=== PATIENT | female | born 1980 | race Caucasian/White ===

== ENCOUNTER 2017-07-21 13:41 | Emergency (ER) | payer MEDICAID ==
[2017-07-21 13:55] VITALS: BP 120/66
[2017-07-21] MEDS ORDERED: Sodium Chloride 0.9% 10 ML Syringe FLUSH PRN (14:25)
[2017-07-21] MEDS ORDERED: Ketorolac 30 MG/ML SDV IVPUSH ONE (14:29)
[2017-07-21] MEDS ORDERED: Ondansetron 4 MG/2 ML SDV IVPUSH ONE (14:29)
--- NOTE | 2017-07-21 14:43 | EDM.PDOC ---
ED HPI GENERAL MEDICAL PROBLEM - General Chief Complaint: Abdominal Pain Stated Complaint: HERNIA PAIN Time Seen by Provider: 07/21/17 14:12 Source of Information: Reports: Patient, Old Records History Limitations: Reports: No Limitations - History of Present Illness INITIAL COMMENTS - FREE TEXT/NARRATIVE: 37-year-old female presents for evaluation and treatment of abdominal pain. Reports that she's been experiencing pain on and off in this area for the last 2 months. States that she has a hernia that was repaired last year by Dr. Pedraza. For the last 2 months she is having worsening pain to this area. She saw Kalyani Ugarte approximately 2 weeks ago and had a CT done. She reports that her hernia was enlarging. She currently is complaining of nausea, weakness and complains of bloating. She states that she is not passing much gas. No vomiting or fevers. She states that she is constipated. She did have a small bowel movement earlier today. States that she contacted Dr. Pedraza's office today, however, he was also she was instructed to come to the ER. Location: Reports: Abdomen Abdominal Pain Score (Numeric/FACES): 2 - Related Data Allergies Allergy/AdvReac Type Severity Reaction Status Date / Time ragweed pollen Allergy Swelling Verified 07/21/17 13:48 Home Meds: Home Meds Albuterol [Ventolin HFA] 2 puff INH Q4H PRN 08/10/14 [History] Ibuprofen [Motrin] 400 mg PO Q6H PRN 08/10/14 [History] Cetirizine [ZyrTEC] 1 tab PO DAILY 05/27/16 [History] Sertraline [Zoloft] 150 mg PO DAILY 05/27/16 [History] buPROPion [buPROPion XL] 150 mg PO DAILY 07/21/17 [History] Past Medical History HEENT History: Reports: Allergic Rhinitis, Impaired Vision, Sinusitis Cardiovascular History: Reports: None Respiratory History: Reports: Asthma Gastrointestinal History: Reports: None, Chronic Diarrhea, Other (See Below) Other Gastrointestinal History: abdominal hernia, abdominal swelling, abdominal wall mass, abd pain 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 History: Reports: Other (See Below) Other OB/BYN History: menorrhagia Musculoskeletal History: Reports: None, Back Pain, Chronic Neurological History: Reports: None Psychiatric History: Reports: Anxiety, Depression Other Psychiatric History: hospitalized in 2002 for overdose Endocrine/Metabolic History: Reports: Obesity/BMI 30+ Hematologic History: Reports: Idiopathic Thrombocytopenia Other Hematologic History: ITP Immunologic History: Reports: None Oncologic (Cancer) History: Reports: None Dermatologic History: Reports: None - Past Surgical History Head Surgeries/Procedures: Reports: None HEENT Surgical History: Reports: Naso-Sinus Surgery GI Surgical History: Reports: Hernia, Abdominal, Hernia, Inguinal, Hernia Repair /Other Female Surgical History: Reports: Tubal Ligation Endocrine Surgical History: Reports: None Musculoskeletal Surgical History: Reports: Arthroscopic Knee Dermatological Surgical History: Reports: None Social & Family History - Family History HEENT: Reports: Cataract Cardiac: Reports: CAD, High Cholesterol, Hypertension, VA, Stent Respiratory: Reports: Sleep Apnea Other Respiratory Family Hisory: father GI: Reports: Other (See Below) Other GI Family History: hernias Musculoskeletal: Reports: Arthritis, Osteoarthritis Neurological: Reports: Seizure Psychiatric: Reports: ADHD, Anxiety, Depression Endocrine/Metabolic: Reports: Diabetes, type II Dermatologic: Reports: Eczema Oncologic: Reports: Breast - Tobacco Use Smoking Status *Q: Former Smoker Years of Tobacco use: 12 Packs/Tins Daily: 1 Used Tobacco, but Quit: No Month Tobacco Last Used: 2014 Second Hand Smoke Exposure: No - Caffeine Use Caffeine Use: Reports: Coffee, Soda - Alcohol Use Days Per Week of Alcohol Use: 0 Number of Drinks Per Day: 0 Total Drinks Per Week: 0 - Recreational Drug Use Recreational Drug Use: No Drug Use in Last 12 Months: No ED ROS GENERAL - Review of Systems Review Of Systems: See Below Constitutional: Reports: Weakness. Denies: Fever GI/Abdominal: Reports: Abdominal Pain, Nausea. Denies: Constipation (reports ) , Flatus, Vomiting ED EXAM, GI/ABD - Physical Exam Exam: See Below Exam Limited By: No Limitations General Appearance: Alert, WD/WN, No Apparent Distress, Obese Ears: Normal External Exam Nose: Normal Inspection Throat/Mouth: Normal Inspection, Normal Lips, Normal Voice, No Airway Compromise Respiratory/Chest: No Respiratory Distress, Lungs Clear, Normal Breath Sounds Cardiovascular: Normal Peripheral Pulses, Regular Rate, Rhythm, No Rub GI/Abdominal Exam: Normal Bowel Sounds, Non-Tender, No Distention. No: Distended, Hernia (defect appreciated to the umbilical area; no hernia present while laying supine on the bed) Neurological: Alert, Oriented, Normal Cognition Psychiatric: Flat Affect Skin Exam: Warm, Dry. No: Erythema Course - Vital Signs Last Recorded V/S: Last Vital Signs Temp 37.0 C 07/21/17 13:51 Pulse 72 07/21/17 13:51 Resp BP 120/66 07/21/17 13:51 Pulse Ox 100 07/21/17 13:51 - Orders/Labs/Meds Labs: Laboratory Tests 07/21/17 07/21/17 07/21/17 Range/Units 15:00 15:00 15:00 WBC 8.88 (3.98-10.04) K/mm3 RBC 4.97 (3.98-5.22) M/mm3 Hgb 12.4 (11.2-15.7) gm/L Hct 38.7 (34.1-44.9) % MCV 77.9 L (79.4-94.8) fl MCH 24.9 L (25.6-32.2) pg MCHC 32.0 L (32.2-35.5) g/dl RDW Std Deviation 48.5 H (36.4-46.3) fL Plt Count 321 (182-369) K/mm3 MPV 10.1 (9.4-12.3) fl Neutrophils % (Manual) 60 (40-60) % Band Neutrophils % 0 (0-10) % Lymphocytes % (Manual) 37 (20-40) % Atypical Lymphs % 0 % Monocytes % (Manual) 0 L (2-10) % Eosinophils % (Manual) 3 (0.7-5.8) % Basophils % (Manual) 0 L (0.1-1.2) Platelet Estimate Adequate Plt Morphology Comment Normal Anisocytosis 2+ moderate RBC Morph Comment Not Reportable Sodium 141 (136-145) mEq/L Potassium 4.2 (3.5-5.1) mEq/L Chloride 105 (98-107) mEq/L Carbon Dioxide 29 (21-32) mEq/L Anion Gap 11.2 (5-15) BUN 8 (7-18) mg/dL Creatinine 0.8 (0.55-1.02) mg/dL Est Cr Clr Drug Dosing 91.88 mL/min Estimated GFR (MDRD) > 60 (>60) mL/min BUN/Creatinine Ratio 10.0 L (14-18) Glucose 94 (74-106) mg/dL Calcium 9.3 (8.5-10.1) mg/dL Total Bilirubin 0.2 (0.2-1.0) mg/dL AST 20 (15-37) U/L ALT 31 (14-59) U/L Alkaline Phosphatase 88 (46-116) U/L Total Protein 8.1 (6.4-8.2) g/dl Albumin 3.6 (3.4-5.0) g/dl Globulin 4.5 gm/dL Albumin/Globulin Ratio 0.8 L (1-2) HCG, Qual Negative (NEGATIVE) Meds: Medications Discontinued Medications Generic Name Dose Route Start Last Admin Trade Name Freq PRN Reason Stop Dose Admin Ketorolac Tromethamine 30 mg 07/21/17 14:29 07/21/17 15:06 Toradol IVPUSH 07/21/17 14:30 30 mg ONETIME ONE Administration Ondansetron HCl 4 mg 07/21/17 14:29 07/21/17 15:02 Zofran IVPUSH 07/21/17 14:30 4 mg ONETIME ONE Administration Sodium Chloride 10 ml 07/21/17 14:25 07/21/17 14:50 Saline Flush FLUSH 10 ml ASDIRECTED PRN Administration Keep Vein Open - Radiology Interpretation Free Text/Narrative:: Abdomen: Supine and upright views of the abdomen were obtained. Comparison: Prior abdominal and pelvic CT exam of 07/10/17 is available as well as abdominal x-ray of 04/14/16. Bowel gas pattern appears normal. No abnormal calcifications or soft tissue abnormality is seen. No free air is identified. Bony structures appear within normal limits for the patient's age. Impression: 1. No abnormality is identified on two-view abdominal x-ray. - Re-Assessments/Exams Free Text/Narrative Re-Assessment/Exam: 07/21/17 16:01 I reviewed the labs and imaging with the patient. She has follow-up with Dr. Pedraza on . I encouraged her to keep this appointment. Offer her medication for pain and nausea, she declined. discharge instructions as documented. Departure - Departure Time of Disposition: 16:02 Disposition: Home, Self-Care 01 Condition: Fair Clinical Impression: Abdominal hernia - Discharge Information Instructions: Hernia, Adult, [id number] Referrals: Kalyani Ugarte NP [Primary Care Provider] - Tono Pedraza MD [Physician] - Forms: ED Department Discharge Additional Instructions: OTC tylenol or motrin as needed for pain. Follow-up with Dr. Pedraza as planned. Please return to the ER if your symptoms change or worsen.
--- NOTE | 2017-07-21 15:05 | CR ---
Abdomen: Supine and upright views of the abdomen were obtained. Comparison: Prior abdominal and pelvic CT exam of 07/10/17 is available as well as abdominal x-ray of 04/14/16. Bowel gas pattern appears normal. No abnormal calcifications or soft tissue abnormality is seen. No free air is identified. Bony structures appear within normal limits for the patient's age. Impression: 1. No abnormality is identified on two-view abdominal x-ray. Diagnostic code #1
== END 2017-07-21 16:18 | disposition home or self-care (01) ==
LOC: JD.ED 13:41
DX: K46.9 Unspecified abdominal hernia without obstruction or gangrene (principal); Z79.899 Other long term (current) drug therapy; Z87.891 Personal history of nicotine dependence
CPT/HCPCS: 36415; 74019; 80053; 84703; 85025; 96374; 96375; 99284; J1885; J2405; J7050

== ENCOUNTER 2017-08-07 10:02 | Day surgery (SDC) | payer MEDICAID ==
[~2017-08-07 10:02] MED LIST: Lidocaine 1% 4 ML ONE; Lidocaine 1%/Sod Bicarbonate in NS 8.4% 1 ML Syringe IDERM PRN; Midazolam 1 MG/ML 2 ML SDV ONE; Propofol 200 MG/20 ML SDV ONE; Sodium Chloride 0.9% 10 ML Syringe FLUSH PRN; fentaNYL 250 MCG/5 ML SDV ONE
[2017-08-07] MEDS: Lactated Ringers 1,000 ML IV SCH ×2 (10:30→13:22)
--- NOTE | 2017-08-07 10:35 | PCM.PREANE ---
Preanesthetic Assessment - Procedure Proposed Procedure: Open Hernia Repair with mesh - Anesthesia/Transfusion/Family Hx Anesthesia History: Prior Anesthesia Without Reaction Family History of Anesthesia Reaction: No Transfusion History: No Prior Transfusion(s) Intubation History: History of Difficulty Intubation - Review of Systems General: No Symptoms Pulmonary: Other (asthma, anxiety trigger ) Gastrointestinal: No Symptoms Neurological: No Symptoms Other: Reports: None - Physical Assessment NPO Status Date: 08/06/17 NPO Status Time: 20:00 Pulse: 65 O2 Sat by Pulse Oximetry: 95 Respiratory Rate: 16 Blood Pressure: 133/79 Temperature: 97.6 C Height: 1.68 m ASA Class: 2 Mental Status: Alert & Oriented x3 Airway Class: Mallampati = 1 Dentition: Reports: Normal Dentition Thyro-Mental Finger Breadths: 3 Mouth Opening Finger Breadths: 5 ROM/Head Extension: Full Lungs: Clear to Auscultation, Normal Respiratory Effort Cardiovascular: Regular Rate, Regular Rhythm - Allergies Allergies/Adverse Reactions: Allergies Allergy/AdvReac Type Severity Reaction Status Date / Time ragweed pollen Allergy Swelling Verified 08/06/17 10:46 - Blood Blood Available: No - Acknowledgements Anesthesia Type Planned: General Anesthesia Pt an Appropriate Candidate for the Planned Anesthesia: Yes Alternatives and Risks of Anesthesia Discussed w Pt/Guardian: Yes Pt/Guardian Understands and Agrees with Anesthesia Plan: Yes PreAnesthesia Questionnaire HEENT History: Reports: Allergic Rhinitis, Impaired Vision, Sinusitis Cardiovascular History: Reports: None Respiratory History: Reports: Asthma Gastrointestinal History: Reports: None, Chronic Diarrhea, Other (See Below) Other Gastrointestinal History: abdominal hernia, abdominal swelling, abdominal wall mass, abd pain Genitourinary History: Reports: None [employer]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) Other OB/BYN History: menorrhagia, bacterial vaginitis Musculoskeletal History: Reports: None, Back Pain, Chronic Neurological History: Reports: None Psychiatric History: Reports: Anxiety, Depression Other Psychiatric History: hospitalized in 2002 for overdose, insomnia Endocrine/Metabolic History: Reports: Obesity/BMI 30+ Hematologic History: Reports: Idiopathic Thrombocytopenia Other Hematologic History: ITP Immunologic History: Reports: None Oncologic (Cancer) History: Reports: None Dermatologic History: Reports: None - Past Surgical History Head Surgeries/Procedures: Reports: None HEENT Surgical History: Reports: Naso-Sinus Surgery Respiratory Surgical History: Reports: None GI Surgical History: Reports: Hernia, Abdominal, Hernia, Inguinal, Hernia Repair /Other Female Surgical History: Reports: Tubal Ligation Male Surgical History: Reports: None Endocrine Surgical History: Reports: None Neurological Surgical History: Reports: None Musculoskeletal Surgical History: Reports: Arthroscopic Knee Oncologic Surgical History: Reports: None Dermatological Surgical History: Reports: None - SUBSTANCE USE Smoking Status *Q: Former Smoker Tobacco Use Within Last Twelve Months: No Second Hand Smoke Exposure: No Days Per Week of Alcohol Use: 0 Number of Drinks Per Day: 0 Total Drinks Per Week: 0 Recreational Drug Use History: No - HOME MEDS Home Medications: Home Meds Albuterol [Ventolin HFA] 2 puff INH Q4H PRN 08/10/14 [History] Ibuprofen [Motrin] 400 mg PO Q6H PRN 08/10/14 [History] Cetirizine [ZyrTEC] 1 tab PO DAILY 05/27/16 [History] Sertraline [Zoloft] 150 mg PO DAILY 05/27/16 [History] ALPRAZolam [Alprazolam] 0.5 mg PO DAILY 08/06/17 [History] Acetaminophen [Tylenol] 650 mg PO Q4H PRN 08/06/17 [History] Ascorbic Acid [Vitamin C] 1,000 mg PO DAILY 08/06/17 [History] buPROPion HCl [Wellbutrin Xl] 300 mg PO DAILY 08/06/17 [History] - CURRENT (IN HOUSE) MEDS Current Meds: Current Medications Lactated Ringer's (Ringers, Lactated) 1,000 mls @ 125 mls/hr IV ASDIRECTED WIL Lidocaine/Sodium Bicarbonate (Buffered Lidocaine 1% In Ns 8.4%) 0.25 ml IDERM ONETIME PRN PRN Reason: Prior to IV Start Sodium Chloride (Saline Flush) 10 ml FLUSH ASDIRECTED PRN PRN Reason: Keep Vein Open Discontinued Medications Bupivacaine HCl/Epinephrine Bitart (Marcaine 0.5%/Epinephrine 1:200,000) Confirm Administered Dose 50 ml .ROUTE .STK-MED ONE Stop: 08/07/17 10:00 Fentanyl (Sublimaze) Confirm Administered Dose 250 mcg .ROUTE .STK-MED ONE Stop: 08/07/17 09:33 Lidocaine HCl (Xylocaine-Mpf 1%) Confirm Administered Dose 4 mls @ as directed .ROUTE .STK-MED ONE Stop: 08/07/17 09:33 Lidocaine/Epinephrine (Xylocaine 1% With Epinephrine 1:100,000) Confirm Administered Dose 20 ml .ROUTE .STK-MED ONE Stop: 08/07/17 10:00 Midazolam HCl (Versed 1 Mg/Ml) Confirm Administered Dose 2 mg .ROUTE .STK-MED ONE Stop: 08/07/17 09:33 Propofol (Diprivan 20 Ml) Confirm Administered Dose 400 mg .ROUTE .STK-MED ONE Stop: 08/07/17 09:30
[2017-08-07] MEDS: Lidocaine 1% with EPINEPHrine 1:100,000 20 ML MDV ONE ×2 (11:06→11:51)
[2017-08-07] MEDS: Bupivacaine 0.5%/EPINEPHrine 1:200,000 50 ML MDV ONE ×2 (11:06→11:51)
[2017-08-07] MEDS ORDERED: Ondansetron 4 MG/2 ML SDV ONE (11:18)
[2017-08-07] MEDS ORDERED: Ketorolac 30 MG/ML SDV ONE (11:18)
[2017-08-07] MEDS ORDERED: ceFAZolin 1 GM Vial ONE (11:18)
[2017-08-07] MEDS ORDERED: Dexamethasone 4 MG/ML 5 ML MDV ONE (11:18)
--- NOTE | 2017-08-07 12:07 | PCM.OPNOTE ---
- General Post-Op/Procedure Note Date of Surgery/Procedure: 08/07/17 Operative Procedure(s): Open primary repair of a recurrent supraumbilical hernia Findings: Adhesions from the previous procedure. There was a 2 cm defect right lateral to the mesh of the previous hernia repair containing a mature sac with omental contents. Pre Op Diagnosis: Recurrent umbilical hernia Post-Op Diagnosis: Same Anesthesia Technique: General ET Tube, Local Primary Surgeon: Tono Pedraza Pathology: None EBL in mLs: 5 Complications: None Condition: Good Free Text/Narrative:: After adequate general endotracheal tube anesthesia was obtained the patient's abdomen was prepped and draped sterilely for the procedure. I entered the skin and subcutaneous space through a previously placed infraumbilical incision with a 15 blade. I used Metzenbaums scissors to dissect down to the fascia. There was a 3 cm chronically inflamed piece of fat related to the previous infraumbilical procedure. This was excised. There was no defect in the fascia in this area. I then detached the umbilicus from the midline and in the area of the supraumbilical repair there was a hernia encased in scar protruding through a 2 cm defect just right lateral to the previous mesh repair containing omentum. I dissected the herniated sac away from the surrounding fascial age sharply with scissors. I excised the sac from the omentum which was reduced after I excised a small tongue of it. I then closed the defect with six interrupted 0 Ethibond sutures taking 1 cm bites. The field was irrigated out with saline. I reattached the umbilical skin to the midline with 3-0 Vicryl. I closed the space with interrupted 3-0 Vicryl and then closed Babita's with a running 3-0 Vicryl. The skin was closed with robyn. Gauze and tape were used for the dressing. There were no complications.
[2017-08-07] MEDS ORDERED: fentaNYL 100 MCG/2 ML SDV IVPUSH PRN (12:21)
[2017-08-07] MEDS ORDERED: HYDROmorphone 0.5 MG/0.5 ML Syringe IVPUSH PRN (12:21)
[2017-08-07] MEDS ORDERED: Ondansetron 4 MG/2 ML SDV IVPUSH PRN (12:21)
[2017-08-07] MEDS ORDERED: diphenhydrAMINE 50 MG/ML SDV IVPUSH PRN (12:21)
--- NOTE | 2017-08-07 12:21 | PCM.POSTAN ---
POST ANESTHESIA ASSESSMENT - MENTAL STATUS Mental Status: Alert - VITAL SIGNS Pulse Rate: 79 SaO2: 100 Resp Rate: 12 Blood Pressure: 143/97 Temperature: 99.2 C - RESPIRATORY Respiratory Status: Respiratory Rate WNL, Airway Patent, O2 Saturation Stable - CARDIOVASCULAR CV Status: Pulse Rate WNL, Blood Pressure Stable - GASTROINTESTINAL GI Status: No Symptoms - PAIN Pain Score: 6 (treated ) - POST OP HYDRATION Hydration Status: Adequate & Stable
[2017-08-07] MEDS ORDERED: LORazepam 2 MG/ML MDV IVPUSH ONE (13:30)
--- NOTE | 2017-08-07 13:30 | PCM48HPAN ---
Post Anesthesia Note - EVALUATION WITHIN 48HRS OF ANESTHETIC Vital Signs in Normal Range: Yes Patient Participated in Evaluation: Yes Respiratory Function Stable: Yes Airway Patent: Yes Cardiovascular Function Stable: Yes Hydration Status Stable: Yes Pain Control Satisfactory: Yes Nausea and Vomiting Control Satisfactory: Yes Mental Status Recovered: Yes Pulse Rate: 79 Resp Rate: 20 Temperature: 99.2 C Blood Pressure: 143/97
[2017-08-07 14:38] VITALS: BP 112/50
== END 2017-08-07 14:20 | disposition home or self-care (01) ==
LOC: JD.SDS 10:02
PROVIDERS: ATTEND Surgery
DX: K43.2 Incisional hernia without obstruction or gangrene (principal); J45.909 Unspecified asthma, uncomplicated; F41.9 Anxiety disorder, unspecified; F32.9 Major depressive disorder, single episode, unspecified; E66.9 Obesity, unspecified; D69.3 Immune thrombocytopenic purpura; Z68.30 Body mass index [BMI] 30.0-30.9, adult; Z91.09 Other allergy status, other than to drugs and biological substances; Z98.51 Tubal ligation status; Z87.891 Personal history of nicotine dependence; Z79.899 Other long term (current) drug therapy
CPT/HCPCS: 49565; J0690; J1100; J1885; J2060; J2250; J2405; J3010; J7120; J2704

== ENCOUNTER 2017-11-30 06:57 | Day surgery (SDC) | payer MEDICAID ==
[~2017-11-30 06:57] MED LIST changes: +Lactated Ringers 1,000 ML IV SCH; -Lidocaine 1% 4 ML ONE; -Midazolam 1 MG/ML 2 ML SDV ONE; -Propofol 200 MG/20 ML SDV ONE; -fentaNYL 250 MCG/5 ML SDV ONE
[2017-11-30] MEDS ORDERED: Bupivacaine 0.5%/EPINEPHrine 1:200,000 50 ML MDV ONE (07:15)
[2017-11-30] MEDS ORDERED: Lidocaine 1% with EPINEPHrine 1:100,000 20 ML MDV ONE (07:15)
--- NOTE | 2017-11-30 07:24 | PCM.PREANE ---
Preanesthetic Assessment - Anesthesia/Transfusion/Family Hx Anesthesia History: Prior Anesthesia Without Reaction Family History of Anesthesia Reaction: No Transfusion History: No Prior Transfusion(s) Intubation History: History of Difficulty Intubation - Review of Systems General: No Symptoms Pulmonary: No Symptoms Cardiovascular: Dyspnea on Exertion Gastrointestinal: No Symptoms Neurological: No Symptoms Other: Reports: Depression - Physical Assessment NPO Status Date: 11/29/17 NPO Status Time: 23:30 Pulse: 61 O2 Sat by Pulse Oximetry: 96 Respiratory Rate: 16 Blood Pressure: 127/73 Temperature: 36.5 C Vital Signs: Last Vital Signs Temp 36.5 C 11/30/17 07:05 Pulse 61 11/30/17 07:05 Resp 16 11/30/17 07:05 BP 127/73 11/30/17 07:05 Pulse Ox 96 11/30/17 07:05 Height: 1.68 m Weight: 115.666 kg ASA Class: 2 Mental Status: Alert & Oriented x3 Airway Class: Mallampati = 2 Dentition: Reports: Normal Dentition Thyro-Mental Finger Breadths: 3 Mouth Opening Finger Breadths: 3 ROM/Head Extension: Full Lungs: Clear to Auscultation, Normal Respiratory Effort Cardiovascular: Regular Rate, Regular Rhythm - Allergies Allergies/Adverse Reactions: Allergies Allergy/AdvReac Type Severity Reaction Status Date / Time ragweed pollen Allergy Swelling Verified 11/27/17 11:45 - Blood Blood Available: No - Anesthesia Plan Pre-Op Medication Ordered: None - Acknowledgements Anesthesia Type Planned: General Anesthesia Pt an Appropriate Candidate for the Planned Anesthesia: Yes Alternatives and Risks of Anesthesia Discussed w Pt/Guardian: Yes Pt/Guardian Understands and Agrees with Anesthesia Plan: Yes PreAnesthesia Questionnaire HEENT History: Reports: Impaired Vision, Sinusitis Other HEENT History: Allergic Rhinitis Cardiovascular History: Reports: Other (See Below) Other Cardiovascular History: Hypokalemia Respiratory History: Reports: Asthma Gastrointestinal History: Reports: Chronic Diarrhea, Other (See Below) Other Gastrointestinal History: Chronic Abdominal Pain, Umbilical Hernia (x4), Abdominal Swelling, Abdominal Wall Mass, Hx. 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 OB/BYN History: menorrhagia, bacterial vaginitis Musculoskeletal History: Reports: Back Pain, Chronic Other Musculoskeletal History: Knee pain Neurological History: Reports: None Psychiatric History: Reports: Anxiety, Depression, Suicide Attempt Other Psychiatric History: hospitalized in 2002 for overdose, insomnia Endocrine/Metabolic History: Reports: Obesity/BMI 30+ Hematologic History: Reports: Idiopathic Thrombocytopenia Other Hematologic History: ITP in 2003 Immunologic History: Reports: None Oncologic (Cancer) History: Reports: None Dermatologic History: Reports: None - Past Surgical History HEENT Surgical History: Reports: Naso-Sinus Surgery GI Surgical History: Reports: Colon, Hernia Repair/Other Female Surgical History: Reports: Tubal Ligation Musculoskeletal Surgical History: Reports: Other (See Below) Other Musculoskeletal Surgeries/Procedures:: Right Knee Surgery - SUBSTANCE USE Smoking Status *Q: Former Smoker Tobacco Use Within Last Twelve Months: No Second Hand Smoke Exposure: No Days Per Week of Alcohol Use: 0 Number of Drinks Per Day: 0 Total Drinks Per Week: 0 Recreational Drug Use History: No - HOME MEDS Home Medications: Home Meds Ibuprofen [Motrin] 400 mg PO Q6H PRN 08/10/14 [History] Cetirizine [ZyrTEC] 1 tab PO DAILY 05/27/16 [History] Sertraline [Zoloft] 150 mg PO DAILY 05/27/16 [History] ALPRAZolam [Alprazolam] 0.5 mg PO DAILY PRN 08/06/17 [History] Acetaminophen [Tylenol] 650 mg PO Q4H PRN 08/06/17 [History] buPROPion HCl [Wellbutrin Xl] 300 mg PO DAILY 08/06/17 [History] Albuterol Sulfate [Proair Hfa] 2 puff INH Q4H PRN 11/27/17 [History] - CURRENT (IN HOUSE) MEDS Current Meds: Current Medications Lactated Ringer's (Ringers, Lactated) 1,000 mls @ 125 mls/hr IV ASDIRECTED WIL Stop: 11/30/17 23:00 Lidocaine/Sodium Bicarbonate (Buffered Lidocaine 1% In Ns 8.4%) 0.25 ml IDERM ONETIME PRN PRN Reason: Prior to IV Start Stop: 11/30/17 18:00 Scopolamine (Transderm-Scop) 1.5 mg TOP ONETIME ONE Stop: 11/30/17 07:20 Sodium Chloride (Saline Flush) 10 ml FLUSH ASDIRECTED PRN PRN Reason: Keep Vein Open Stop: 11/30/17 18:00 Discontinued Medications Bupivacaine HCl/Epinephrine Bitart (Marcaine 0.5%/Epinephrine 1:200,000) Confirm Administered Dose 50 ml .ROUTE .STK-MED ONE Stop: 11/30/17 07:16 Lidocaine/Epinephrine (Xylocaine 1% With Epinephrine 1:100,000) Confirm Administered Dose 20 ml .ROUTE .STK-MED ONE Stop: 11/30/17 07:16
[2017-11-30] MEDS ORDERED: Scopolamine 1.5 MG Transdermal Patch TOP ONE (07:25)
[2017-11-30] MEDS ORDERED: Ondansetron 4 MG/2 ML SDV ONE (07:30)
[2017-11-30] MEDS ORDERED: Rocuronium 50 MG/5 ML Vial ONE (07:30)
[2017-11-30] MEDS ORDERED: fentaNYL 250 MCG/5 ML SDV ONE (07:30)
[2017-11-30] MEDS ORDERED: Midazolam 1 MG/ML 2 ML SDV ONE (07:30)
[2017-11-30] MEDS ORDERED: Propofol 200 MG/20 ML SDV ONE (07:30)
[2017-11-30] MEDS ORDERED: Lidocaine 1% 4 ML ONE (07:31)
[2017-11-30] MEDS ORDERED: ceFAZolin 1 GM Vial ONE ×2 (07:36→09:56)
[2017-11-30] MEDS ORDERED: Lactated Ringers 1,000 ML ONE (08:12)
[2017-11-30] MEDS ORDERED: Dexamethasone 4 MG/ML 5 ML MDV ONE (08:13)
[2017-11-30] MEDS ORDERED: HYDROmorphone 0.5 MG/0.5 ML Syringe ONE (08:21)
[2017-11-30] MEDS ORDERED: Ketorolac 30 MG/ML SDV IVPUSH PRN (09:05)
--- NOTE | 2017-11-30 09:06 | PCM.POSTAN ---
POST ANESTHESIA ASSESSMENT - MENTAL STATUS Mental Status: Alert, Oriented - VITAL SIGNS Pulse Rate: 66 SaO2: 100 Resp Rate: 13 Blood Pressure: 130/75 Temperature: 36.7 C - RESPIRATORY Respiratory Status: Respiratory Rate WNL, Airway Patent, O2 Saturation Stable, Supplemental Oxygen - CARDIOVASCULAR CV Status: Pulse Rate WNL, Blood Pressure Stable - GASTROINTESTINAL GI Status: No Symptoms - PAIN Pain Score: 0 - POST OP HYDRATION Hydration Status: Adequate & Stable - OBSERVATIONS Free Text/Narrative:: no anesthesia complications noted
[2017-11-30] MEDS ORDERED: LORazepam 2 MG/ML SDV ONE (09:27)
[2017-11-30] MEDS ORDERED: LORazepam 2 MG/ML SDV IVPUSH ONE (09:29)
[2017-11-30] MEDS ORDERED: Acetaminophen/oxyCODONE 325-5 MG Tab PO ONE (09:40)
[2017-11-30] MEDS ORDERED: Citric Acid/Sodium Citrate Solution 30 ML Cup PO ONE (09:50)
[2017-11-30 10:29] VITALS: BP 113/66
--- NOTE | 2017-11-30 10:35 | PCM.OPNOTE ---
- General Post-Op/Procedure Note Date of Surgery/Procedure: 11/30/17 Operative Procedure(s): Open recurrent umbilical repair with mesh Findings: Herniated omentum above the old mesh repair Pre Op Diagnosis: Recurrent incarcerated umbilical hernia Post-Op Diagnosis: Same Anesthesia Technique: General ET Tube, Local Primary Surgeon: Tono Pedraza Pathology: None EBL in mLs: 2 Complications: None Condition: Good Free Text/Narrative:: Intake & Output 11/29/17 11/30/17 11/30/17 22:59 06:59 14:59 Intake Total 325 Balance 325 After adequate LMA general anesthesia was obtained the patient's abdomen was prepped then draped sterilely for an open umbilical hernia repair. Local analgesia was given in the previous incision site which was opened with a 15 blade. Metzenbaum scissors and the cautery were used to dissect out the hernia which was emanating from just above the mesh from the old mesh repair. I cleared away the subcutaneous fat circumferentially around the herniated fat. I amputated the omentum after the sac from the fascia. The defect was about 2 cm in diameter. I placed a 4.3cm Ventral X ST mesh and the defect then closed with interrupted 0 Ethibond suture. The field was irrigated out with saline after giving additional local at the fascial level. The subcutaneous tissues were closed with a 3-0 Vicryl suture. The skin was closed with robyn. Gauze and tape were used for the dressing. There were no complications.
--- NOTE | 2017-11-30 12:06 | PCM48HPAN ---
Post Anesthesia Note - EVALUATION WITHIN 48HRS OF ANESTHETIC Vital Signs in Normal Range: Yes Patient Participated in Evaluation: Yes Respiratory Function Stable: Yes Airway Patent: Yes Cardiovascular Function Stable: Yes Hydration Status Stable: Yes Pain Control Satisfactory: Yes Nausea and Vomiting Control Satisfactory: Yes Mental Status Recovered: Yes
== END 2017-11-30 11:06 | disposition home or self-care (01) ==
LOC: JD.SDS 06:57
PROVIDERS: ATTEND Surgery
PROC: 0WQF0ZZ Repair Abdominal Wall, Open Approach (ICD-10-PCS; principal; 2017-11-30)
DX: K42.0 Umbilical hernia with obstruction, without gangrene (principal); J45.909 Unspecified asthma, uncomplicated; F32.9 Major depressive disorder, single episode, unspecified; F41.9 Anxiety disorder, unspecified; Z87.891 Personal history of nicotine dependence; Z79.899 Other long term (current) drug therapy
CPT/HCPCS: 36415; 49587; 80053; 85025; A9270; C1781; J0690; J1100; J1170; J1885; J2001; J2060; J2250; J2405; J3010; J7120; J2704

== ENCOUNTER 2021-01-17 13:47 | Day surgery (SDC) | payer MEDICAID ==
[2021-01-17] MEDS ORDERED: Ondansetron 4 MG/2 ML SDV IVPUSH ONE (14:31)
[2021-01-17] MEDS ORDERED: Sodium Chloride 0.9% 10 ML Syringe FLUSH PRN (14:31)
[2021-01-17] MEDS ORDERED: HYDROmorphone 1 MG/ML Syringe IVPUSH ONE (14:38)
[2021-01-17] MEDS ORDERED: Sodium Chloride 0.9% 1,000 ML IV SCH (14:45)
--- NOTE | 2021-01-17 14:58 | EDM.PDOC ---
ED HPI GENERAL MEDICAL PROBLEM - General Chief Complaint: Abdominal Pain Stated Complaint: ABDOMINAL PAIN Time Seen by Provider: 01/17/21 14:30 Source of Information: Reports: Patient, RN Notes Reviewed History Limitations: Reports: No Limitations - History of Present Illness INITIAL COMMENTS - FREE TEXT/NARRATIVE: Patient is a 40-year-old female who presents to the ER for the evaluation of her abdomen pain. Notes this has been present since around Thursday, she has had pain in her stomach, that radiates down into her pelvis. She feels like her whole abdomen is being twisted from the inside out. States that intermittently after eating it hurts at times. She is having nausea but no vomiting, she had a few episodes of diarrhea on Thursday but has had no symptoms since. She is denying any urinary symptoms. Note she had a bowel movement today, and is still able to pass flatus. She is also having chills but no fever. Patient notes that she has had prior hernia surgeries and a tubal ligation but still retains her gallbladder and appendix. She has been taking Tylenol but this does not seem to be helping. Primary care provider is Kalyani Ugarte. 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: Other (see below) Other Treatments PRODUCTION PATTERN MAKER: tylenol today Middle Abdomen Pain Score (Numeric/FACES): 10 - Related Data Allergies Allergy/AdvReac Type Severity Reaction Status Date / Time ragweed pollen Allergy Severe Swelling Verified 01/17/21 14:23 Home Meds: Home Meds Ibuprofen [Motrin] 400 mg PO Q6H PRN 08/10/14 [History] Cetirizine [ZyrTEC] 1 tab PO DAILY 05/27/16 [History] Acetaminophen [Tylenol] 650 mg PO Q4H PRN 08/06/17 [History] Albuterol Sulfate [Proair Hfa] 2 puff INH Q4H PRN 11/27/17 [History] DULoxetine [Cymbalta] 30 mg PO DAILY 01/17/21 [History] Past Medical History HEENT History: Reports: Impaired Vision, Sinusitis Other HEENT History: Allergic Rhinitis Cardiovascular History: Reports: Other (See Below) Other Cardiovascular History: Hypokalemia Respiratory History: Reports: Asthma Gastrointestinal History: Reports: Other (See Below) Other Gastrointestinal History: Chronic Abdominal Pain, Umbilical Hernia (x4), Abdominal Swelling, Abdominal Wall Mass, Hx. 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: menorrhagia, bacterial vaginitis Musculoskeletal History: Reports: Back Pain, Chronic, Fibromyalgia Other Musculoskeletal History: Knee pain Psychiatric History: Reports: Anxiety, Depression, Suicide Attempt Other Psychiatric History: hospitalized in 2002 for overdose, insomnia Endocrine/Metabolic History: Reports: Obesity/BMI 30+ Hematologic History: Reports: Idiopathic Thrombocytopenia Other Hematologic History: ITP in 2003 - Past Surgical History HEENT Surgical History: Reports: Naso-Sinus Surgery GI Surgical History: Reports: Colon, Hernia Repair/Other Female Surgical History: Reports: Tubal Ligation Musculoskeletal Surgical History: Reports: Arthroscopic Knee, Other (See Below) Other Musculoskeletal Surgeries/Procedures:: Right Knee Surgery Social & Family History - Family History HEENT: Reports: Cataract Cardiac: Reports: CAD, High Cholesterol, Hypertension, [place], Stent Respiratory: Reports: Sleep Apnea Other Respiratory Family Hisory: father GI: Reports: Other (See Below) Other GI Family History: hernias Musculoskeletal: Reports: Arthritis, Osteoarthritis Neurological: Reports: Seizure Psychiatric: Reports: ADHD, Anxiety, Depression Endocrine/Metabolic: Reports: Diabetes, type II Dermatologic: Reports: Eczema Oncologic: Reports: Breast - Tobacco Use Tobacco Use Status *Q: Current Every Day Tobacco User Years of Tobacco use: 10 Packs/Tins Daily: 1 - Caffeine Use Caffeine Use: Reports: Soda - Recreational Drug Use Recreational Drug Use: No ED ROS GENERAL - Review of Systems Review Of Systems: Comprehensive ROS is negative, except as noted in HPI. ED EXAM, GI/ABD - Physical Exam Exam: See Below Exam Limited By: No Limitations General Appearance: Alert, WD/WN, No Apparent Distress Respiratory/Chest: No Respiratory Distress, Lungs Clear, Normal Breath Sounds, No Accessory Muscle Use, Chest Non-Tender Cardiovascular: Normal Peripheral Pulses, Regular Rate, Rhythm, No Edema GI/Abdominal Exam: Normal Bowel Sounds, Soft, No Distention, No Mass, Tender (generalized abd tenderness) Extremities: Normal Inspection, Normal Capillary Refill Neurological: Alert, Oriented, Normal Cognition, No Motor/Sensory Deficits Psychiatric: Normal Affect, Normal Mood Skin Exam: Warm, Dry, Intact, Normal Color, No Rash Course - Vital Signs Last Recorded V/S: Last Vital Signs Temp 97.2 F 01/17/21 14:30 Pulse 68 01/17/21 16:34 Resp 16 01/17/21 16:34 BP 131/71 01/17/21 16:34 Pulse Ox 93 L 01/17/21 16:34 - Orders/Labs/Meds Orders: Active Orders 24 hr Category Date Time Status Notify Provider Consults [RC] ASDIRECTED Care 01/17/21 16:58 Active Peripheral IV Care [RC] . DIRECTED Care 01/17/21 14:31 Active Consult to Physician [CONS] Stat Cons 01/17/21 16:58 Active COVID-19/FLU A+B [MOLEC] Stat Lab 01/17/21 17:08 Received UA W/MICROSCOPIC [URIN] Stat Lab 01/17/21 14:31 Ordered Sodium Chloride 0.9% [Normal Saline] 1,000 ml Med 01/17/21 14:45 Active IV ASDIRECTED Sodium Chloride 0.9% [Saline Flush] Med 01/17/21 14:31 Active 10 ml FLUSH ASDIRECTED PRN Peripheral IV Insertion Adult [OM.PC] Stat Oth 01/17/21 14:31 Ordered Medication Orders Sodium Chloride (Normal Saline) 1,000 mls @ 999 mls/hr IV ASDIRECTED WIL Last Admin: 01/17/21 15:57 Dose: 999 mls/hr Documented by: ABY Sodium Chloride (Sodium Chloride 0.9% 10 Ml Syringe) 10 ml FLUSH ASDIRECTED PRN PRN Reason: Keep Vein Open Last Admin: 01/17/21 15:57 Dose: 10 ml Documented by: ABY Labs: Laboratory Tests 01/17/21 01/17/21 Range/Units 15:55 15:55 WBC 12.68 H (3.98-10.04) K/mm3 RBC 5.47 H (3.98-5.22) M/mm3 Hgb 14.1 (11.2-15.7) gm/dl Hct 43.8 (34.1-44.9) % MCV 80.1 (79.4-94.8) fl MCH 25.8 (25.6-32.2) pg MCHC 32.2 (32.2-35.5) g/dl RDW Std Deviation 48.6 H (36.4-46.3) fL Plt Count 346 (182-369) K/mm3 MPV 10.6 (9.4-12.3) fl Neut % (Auto) 64.8 (34.0-71.1) % Lymph % (Auto) 24.1 (19.3-51.7) % Mitchell % (Auto) 9.4 (4.7-12.5) % Eos % (Auto) 1.3 (0.7-5.8) Baso % (Auto) 0.2 (0.1-1.2) % Neut # (Auto) 8.23 H (1.56-6.13) K/mm3 Lymph # (Auto) 3.05 (1.18-3.74) K/mm3 Mitchell # (Auto) 1.19 H (0.24-0.36) K/mm3 Eos # (Auto) 0.17 (0.04-0.36) K/mm3 Baso # (Auto) 0.02 (0.01-0.08) K/mm3 Manual Slide Review Normal smear Sodium 141 (136-145) mEq/L Potassium 3.7 (3.5-5.1) mEq/L Chloride 104 (98-107) mEq/L Carbon Dioxide 27 (21-32) mEq/L Anion Gap 13.7 (5-15) BUN 5 L (7-18) mg/dL Creatinine 0.7 (0.55-1.02) mg/dL Est Cr Clr Drug Dosing 102.01 mL/min Estimated GFR (MDRD) > 60 (>60) mL/min BUN/Creatinine Ratio 7.1 L (14-18) Glucose 106 H (70-99) mg/dL Calcium 9.2 (8.5-10.1) mg/dL Total Bilirubin 0.3 (0.2-1.0) mg/dL AST 27 (15-37) U/L ALT 40 (14-59) U/L Alkaline Phosphatase 142 H (46-116) U/L C-Reactive Protein 7.2 H* (<1.0) mg/dL Total Protein 8.2 (6.4-8.2) g/dl Albumin 3.5 (3.4-5.0) g/dl Globulin 4.7 gm/dL Albumin/Globulin Ratio 0.7 L (1-2) Lipase 47 L (73-393) U/L Meds: Medications Generic Name Dose Route Start Last Admin Trade Name Addie PRN Reason Stop Dose Admin Sodium Chloride 1,000 mls @ 999 mls/hr 01/17/21 14:45 01/17/21 15:57 Normal Saline IV 999 mls/hr ASDIRECTED WIL Administration Sodium Chloride 10 ml 01/17/21 14:31 01/17/21 15:57 Sodium Chloride 0.9% 10 Ml Syringe FLUSH 10 ml ASDIRECTED PRN Administration Keep Vein Open Discontinued Medications Generic Name Dose Route Start Last Admin Trade Name Addie PRN Reason Stop Dose Admin Hydromorphone HCl 1 mg 01/17/21 14:38 01/17/21 15:57 Hydromorphone 1 Mg/Ml Syringe IVPUSH 01/17/21 14:39 1 mg ONETIME ONE Administration Hydromorphone HCl 0.5 mg 01/17/21 16:51 Hydromorphone 0.5 Mg/0.5 Ml Syringe IVPUSH 01/17/21 16:52 ONETIME ONE Ondansetron HCl 4 mg 01/17/21 14:31 01/17/21 15:57 Ondansetron 4 Mg/2 Ml Sdv IVPUSH 01/17/21 14:32 4 mg ONETIME ONE Administration - Re-Assessments/Exams Free Text/Narrative Re-Assessment/Exam: 01/17/21 14:58 Patient presents to the ER for the evaluation of her abdominal pain. We will go ahead and get an abdominal CT, basic labs, give her some pain medicines and nausea medicines along with some IV fluids for initial management. 01/17/21 16:52 Patient's labs are essentially resulted, CBC is somewhat elevated at 12.68 with no discernible left shift on the auto differential, CMP is essentially unr emarkable, CRP is elevated at 7.2. CT was done and demonstrates an anterior abdominal wall hernia seen which contains a loop of nondilated small bowel, inflammatory change noted around the hernia with the subcutaneous fat, either represents infection or represents an area of fatty infarction, with her pain I would err on the side of its probably infarcted, we will go ahead and call surgeon for evaluation. We will do a Covid screen at this moment. CT also demonstrated a 6.1 cm cyst within the left ovary, follow-up pelvic ultrasound recommended in 4 to 6 months. 01/17/21 17:08 Patient states that she has had 4 hernia surgeries. Departure - Departure Time of Disposition: 17:19 Disposition: DC/Tfer to [facility] Condition: Fair Clinical Impression: Strangulated hernia of abdominal wall - Discharge Information Referrals: Kalyani Ugarte, ASSISTANT PROGRAM MANAGER [Primary Care Provider] - Forms: ED Department Discharge Sepsis Event Note (ED) - Focused Exam Vital Signs: Vital Signs Temp Pulse Resp BP BP Pulse Ox 01/17/21 16:34 68 16 131/71 93 L 01/17/21 14:30 97.2 F 67 20 123/75 93 L - My Orders Last 24 Hours: My Active Orders 01/17/21 14:31 Peripheral IV Care [RC] . DIRECTED UA W/MICROSCOPIC [URIN] Stat Sodium Chloride 0.9% [Saline Flush] 10 ml FLUSH ASDIRECTED PRN Peripheral IV Insertion Adult [OM.PC] Stat 01/17/21 14:45 Sodium Chloride 0.9% [Normal Saline] 1,000 ml IV ASDIRECTED 01/17/21 16:58 Notify Provider Consults [RC] ASDIRECTED Consult to Physician [CONS] Stat 01/17/21 17:08 COVID-19/FLU A+B [MOLEC] Stat - Assessment/Plan Last 24 Hours: My Active Orders 01/17/21 14:31 Peripheral IV Care [RC] . DIRECTED UA W/MICROSCOPIC [URIN] Stat Sodium Chloride 0.9% [Saline Flush] 10 ml FLUSH ASDIRECTED PRN Peripheral IV Insertion Adult [OM.PC] Stat 01/17/21 14:45 Sodium Chloride 0.9% [Normal Saline] 1,000 ml IV ASDIRECTED 01/17/21 16:58 Notify Provider Consults [RC] ASDIRECTED Consult to Physician [CONS] Stat 01/17/21 17:08 COVID-19/FLU A+B [MOLEC] Stat
--- NOTE | 2021-01-17 16:50 | CT ---
CT abdomen and pelvis Technique: Multiple axial sections were obtained from above the dome of the diaphragm inferiorly through the pubic symphysis. Reconstructed coronal and sagittal images were obtained. Intravenous and oral contrast were utilized. Comparison: Prior CT abdomen and pelvis exam of 07/10/17. Findings: Visualized lung bases show nothing acute. Liver shows no focal abnormality. Gallbladder shows no calcified gallstones. Spleen size is normal. Adrenal glands show no nodule. Pancreas is within normal limits. Kidneys show symmetric contrast enhancement with no hydronephrosis or mass. Abdominal aorta shows no aneurysm. No retroperitoneal adenopathy or mesenteric abnormalities are seen. Normal-size appendix is questionably visualized. Cyst is noted within the left ovary measuring 6.1 cm. No additional pelvic abnormality is appreciated. Anterior abdominal wall hernia is seen which contains a loop of nondilated small bowel. Inflammatory change is noted around this hernia within the subcutaneous fat. This either represents infection or represents an area of fatty infarction. No additional abdominal wall abnormality is appreciated. Delayed images show contrast within the bladder. Bone window settings were reviewed which show no acute osseous abnormality. Impression: 1. Anterior abdominal wall hernia directly above the umbilicus which contains a loop of nondilated small bowel. Increased density within the subcutaneous fat is seen around this hernia which is either due to inflammation or a focal area of ischemic fatty change. 2. 6.1 cm cyst within the left ovary. Follow-up pelvic ultrasound recommended in 4-6 months. 3. No additional abnormality is appreciated on CT study of the abdomen and pelvis. Diagnostic code #3
[2021-01-17] MEDS ORDERED: HYDROmorphone 0.5 MG/0.5 ML Syringe IVPUSH ONE (16:51)
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
--- NOTE | 2021-01-17 17:43 | PCM.PREANE ---
Preanesthetic Assessment - Procedure Proposed Procedure: Ventral hernia repair - Anesthesia/Transfusion/Family Hx Anesthesia History: Prior Anesthesia Without Reaction Transfusion History: No Prior Transfusion(s) Intubation History: History of Difficulty Intubation - Review of Systems General: Weakness, Fatigue, Night Sweats, Appetite Pulmonary: No Symptoms Cardiovascular: No Symptoms Gastrointestinal: Abdominal Pain Neurological: Other (Fibromyalgia) Other: Reports: Depression, Anxiety - Physical Assessment NPO Status Date: 01/17/21 NPO Status Time: 12:00 Vital Signs: Last Vital Signs Temp 97.2 F 01/17/21 14:30 Pulse 68 01/17/21 16:34 Resp 16 01/17/21 16:34 BP 131/71 01/17/21 16:34 Pulse Ox 93 L 01/17/21 16:34 Height: 1.68 m Weight: 131.542 kg ASA Class: 3E Mental Status: Alert & Oriented x3 Airway Class: Mallampati = 2 Dentition: Reports: Normal Dentition, Gorst(s) Thyro-Mental Finger Breadths: 3 Mouth Opening Finger Breadths: 3 ROM/Head Extension: Full Lungs: Clear to Auscultation, Normal Respiratory Effort Cardiovascular: Regular Rate, Regular Rhythm - Lab Values: Laboratory Last Values WBC 12.68 K/mm3 (3.98-10.04) H 01/17/21 15:55 RBC 5.47 M/mm3 (3.98-5.22) H 01/17/21 15:55 Hgb 14.1 gm/dl (11.2-15.7) 01/17/21 15:55 Hct 43.8 % (34.1-44.9) 01/17/21 15:55 MCV 80.1 fl (79.4-94.8) 01/17/21 15:55 MCH 25.8 pg (25.6-32.2) 01/17/21 15:55 MCHC 32.2 g/dl (32.2-35.5) 01/17/21 15:55 RDW Std Deviation 48.6 fL (36.4-46.3) H 01/17/21 15:55 Plt Count 346 K/mm3 (182-369) 01/17/21 15:55 MPV 10.6 fl (9.4-12.3) 01/17/21 15:55 Neut % (Auto) 64.8 % (34.0-71.1) 01/17/21 15:55 Lymph % (Auto) 24.1 % (19.3-51.7) 01/17/21 15:55 Atlantic % (Auto) 9.4 % (4.7-12.5) 01/17/21 15:55 Eos % (Auto) 1.3 (0.7-5.8) 01/17/21 15:55 Baso % (Auto) 0.2 % (0.1-1.2) 01/17/21 15:55 Neut # (Auto) 8.23 K/mm3 (1.56-6.13) H 01/17/21 15:55 Lymph # (Auto) 3.05 K/mm3 (1.18-3.74) 01/17/21 15:55 Atlantic # (Auto) 1.19 K/mm3 (0.24-0.36) H 01/17/21 15:55 Eos # (Auto) 0.17 K/mm3 (0.04-0.36) 01/17/21 15:55 Baso # (Auto) 0.02 K/mm3 (0.01-0.08) 01/17/21 15:55 Manual Slide Review Normal smear 01/17/21 15:55 Sodium 141 mEq/L (136-145) 01/17/21 15:55 Potassium 3.7 mEq/L (3.5-5.1) 01/17/21 15:55 Chloride 104 mEq/L (98-107) 01/17/21 15:55 Carbon Dioxide 27 mEq/L (21-32) 01/17/21 15:55 Anion Gap 13.7 (5-15) 01/17/21 15:55 BUN 5 mg/dL (7-18) L 01/17/21 15:55 Creatinine 0.7 mg/dL (0.55-1.02) 01/17/21 15:55 Est Cr Clr Drug Dosing 102.01 mL/min 01/17/21 15:55 Estimated GFR (MDRD) > 60 mL/min (>60) 01/17/21 15:55 BUN/Creatinine Ratio 7.1 (14-18) L 01/17/21 15:55 Glucose 106 mg/dL (70-99) H 01/17/21 15:55 Calcium 9.2 mg/dL (8.5-10.1) 01/17/21 15:55 Total Bilirubin 0.3 mg/dL (0.2-1.0) 01/17/21 15:55 AST 27 U/L (15-37) 01/17/21 15:55 ALT 40 U/L (14-59) 01/17/21 15:55 Alkaline Phosphatase 142 U/L (46-116) H 01/17/21 15:55 C-Reactive Protein 7.2 mg/dL (<1.0) H* 01/17/21 15:55 Total Protein 8.2 g/dl (6.4-8.2) 01/17/21 15:55 Albumin 3.5 g/dl (3.4-5.0) 01/17/21 15:55 Globulin 4.7 gm/dL 01/17/21 15:55 Albumin/Globulin Ratio 0.7 (1-2) L 01/17/21 15:55 Lipase 47 U/L (73-393) L 01/17/21 15:55 Urine Color Yellow (Yellow) 01/17/21 15:17 Urine Appearance Clear (Clear) 01/17/21 15:17 Urine pH 6.5 (5.0-8.0) 01/17/21 15:17 Ur Specific [place] 1.015 (1.005-1.030) 01/17/21 15:17 Urine Protein Negative (Negative) 01/17/21 15:17 Urine Glucose (UA) Negative (Negative) 01/17/21 15:17 Urine Ketones Negative (Negative) 01/17/21 15:17 Urine Occult Blood Negative (Negative) 01/17/21 15:17 Urine Nitrite Negative (Negative) 01/17/21 15:17 Urine Bilirubin Negative (Negative) 01/17/21 15:17 Urine Urobilinogen 0.2 (0.2-1.0) 01/17/21 15:17 Ur Leukocyte Esterase Negative (Negative) 01/17/21 15:17 - Allergies Allergies/Adverse Reactions: Allergies Allergy/AdvReac Type Severity Reaction Status Date / Time ragweed pollen Allergy Severe Swelling Verified 01/17/21 14:23 - Acknowledgements Anesthesia Type Planned: General Anesthesia Pt an Appropriate Candidate for the Planned Anesthesia: Yes Alternatives and Risks of Anesthesia Discussed w Pt/Guardian: Yes Pt/Guardian Understands and Agrees with Anesthesia Plan: Yes PreAnesthesia Questionnaire HEENT History: Reports: Impaired Vision, Sinusitis Other HEENT History: Allergic Rhinitis Cardiovascular History: Reports: Other (See Below) Other Cardiovascular History: Hypokalemia Respiratory History: Reports: Asthma Gastrointestinal History: Reports: Other (See Below) Other Gastrointestinal History: Chronic Abdominal Pain, Umbilical Hernia (x4), Abdominal Swelling, Abdominal Wall Mass, Hx. of Diarrhea Genitourinary History: Reports: Other (See Below) Other Genitourinary History: Bacterial Vaginitis, Cervical Cancer Screening, Screen for STD, Menorrhagia premenopausal MARBLE RUBBER History: Reports: Other OB/BYN History: menorrhagia, bacterial vaginitis Musculoskeletal History: Reports: Back Pain, Chronic, Fibromyalgia Other Musculoskeletal History: Knee pain Neurological History: Reports: None Psychiatric History: Reports: Anxiety, Depression, Suicide Attempt Other Psychiatric History: hospitalized in 2002 for overdose, insomnia Endocrine/Metabolic History: Reports: Obesity/BMI 30+ Hematologic History: Reports: Idiopathic Thrombocytopenia Other Hematologic History: ITP in 2003 Immunologic History: Reports: None Oncologic (Cancer) History: Reports: None Dermatologic History: Reports: None - Past Surgical History HEENT Surgical History: Reports: Naso-Sinus Surgery GI Surgical History: Reports: Colon, Hernia Repair/Other Female Surgical History: Reports: Tubal Ligation Musculoskeletal Surgical History: Reports: Arthroscopic Knee, Other (See Below) Other Musculoskeletal Surgeries/Procedures:: Right Knee Surgery - SUBSTANCE USE Tobacco Use Status *Q: Current Every Day Tobacco User Recreational Drug Use History: No - HOME MEDS Home Medications: Home Meds Ibuprofen [Motrin] 400 mg PO Q6H PRN 08/10/14 [History] Cetirizine [ZyrTEC] 1 tab PO DAILY 05/27/16 [History] Acetaminophen [Tylenol] 650 mg PO Q4H PRN 08/06/17 [History] Albuterol Sulfate [Proair Hfa] 2 puff INH Q4H PRN 11/27/17 [History] DULoxetine [Cymbalta] 30 mg PO DAILY 01/17/21 [History] - CURRENT (IN HOUSE) MEDS Current Meds: Current Medications Sodium Chloride (Normal Saline) 1,000 mls @ 999 mls/hr IV ASDIRECTED WIL Last Admin: 01/17/21 15:57 Dose: 999 mls/hr Documented by: Sodium Chloride (Sodium Chloride 0.9% 10 Ml Syringe) 10 ml FLUSH ASDIRECTED PRN PRN Reason: Keep Vein Open Last Admin: 01/17/21 15:57 Dose: 10 ml Documented by: Discontinued Medications Hydromorphone HCl (Hydromorphone 1 Mg/Ml Syringe) 1 mg IVPUSH ONETIME ONE Stop: 01/17/21 14:39 Last Admin: 01/17/21 15:57 Dose: 1 mg Documented by: Hydromorphone HCl (Hydromorphone 0.5 Mg/0.5 Ml Syringe) 0.5 mg IVPUSH ONETIME ONE Stop: 01/17/21 16:52 Ondansetron HCl (Ondansetron 4 Mg/2 Ml Sdv) 4 mg IVPUSH ONETIME ONE Stop: 01/17/21 14:32 Last Admin: 01/17/21 15:57 Dose: 4 mg Documented by:
[2021-01-17] MEDS ORDERED: Lidocaine 1% with EPINEPHrine 1:100,000 10 ML MDV ONE (17:44)
[2021-01-17] MEDS ORDERED: Bupivacaine 0.5%/EPINEPHrine 1:200,000 50 ML MDV ONE (17:44)
[2021-01-17] MEDS ORDERED: Succinylcholine/Sod PF 100 MG/5 ML SYRINGE IV ONE (17:54)
[2021-01-17] MEDS ORDERED: Midazolam 1 MG/ML 2 ML SDV ONE (17:54)
[2021-01-17] MEDS ORDERED: Propofol 200 MG/20 ML SDV ONE (17:54)
[2021-01-17] MEDS ORDERED: fentaNYL 250 MCG/5 ML SDV ONE (17:55)
[2021-01-17 17:56] LABS: CORONAVIRUS COVID-19 NAA NEGATIVE (NEGATIVE)
[2021-01-17] MEDS ORDERED: HYDROmorphone 0.5 MG/0.5 ML Syringe ONE ×2 (18:22→21:35)
[2021-01-17] MEDS ORDERED: Lactated Ringers 1,000 ML ONE ×4 (18:27→22:12)
[2021-01-17] MEDS ORDERED: ceFAZolin 1 GM Vial ONE (18:33)
[2021-01-17] MEDS ORDERED: fentaNYL 100 MCG/2 ML SDV IVPUSH PRN (19:08)
[2021-01-17] MEDS ORDERED: HYDROmorphone 0.5 MG/0.5 ML Syringe IVPUSH PRN (19:08)
[2021-01-17] MEDS ORDERED: Dexamethasone 4 MG/ML 5 ML MDV ONE (19:41)
[2021-01-17] MEDS ORDERED: Ondansetron 4 MG/2 ML SDV ONE ×2 (19:44→23:37)
[2021-01-17] MEDS ORDERED: Ketorolac 30 MG/ML SDV ONE (21:10)
--- NOTE | 2021-01-17 21:51 | PCM.OPNOTE ---
- General Post-Op/Procedure Note Date of Surgery/Procedure: 01/17/21 Operative Procedure(s): 1. Laparoscopic lysis of adhesions. 2. Explant of abdominal wall mesh. 3. Laparoscopic ventral incisional hernia repair with mesh Findings: 1. Adhesions of the mesentery to the abdominal wall hernia 2. Two previous meshes adherent to the edges of the hernia 3. Healthy appearance of surrounding bowel Pre Op Diagnosis: Incarcerated ventral hernia Post-Op Diagnosis: Incarcerated ventral incisional hernia Anesthesia Technique: General ET Tube, Local Primary Surgeon: Kayla Hernandez Anesthesia Provider: Fortino Solis Pathology: none Fluid Replacement, Intraop: 3,000 Output, Urine Amount: 100 EBL in mLs: 25 Complications: none apparent Condition: Good
--- NOTE | 2021-01-17 21:59 | PCM.PRNOTE ---
- Free Text/Narrative Note: Operative Report Date of surgery: January 17, 2021 Preoperative diagnosis: Incarcerated Ventral hernia Postoperative diagnosis: Incarcerated ventral incisional hernia Surgeon: Dr. Kayla Hernandez Anesthesia: General ET with local [employer] Crewmember: Fortino Solis CRNA Estimated blood loss: 25 mL IV fluids: 300 mL Urine output: 100 mL Drains and lines: None Indication for the procedure: The patient is a 40-year-old lady who presented to the emergency department with findings of an incarcerated periumbilical hernia. She previously had a hernia repair done in this area 4 times. She had periumbilical pain with nausea and vomiting for 4 days. She had evaluation by the emergency department with findings of this incarcerated hernia and possible strangulation. I discussed a procedure of a laparoscopic ventral hernia repair with mesh with the patient, as well as possible conversion to open and possible need for bowel resection. We also discussed that the hernia may not be able to be repaired at this time. Risks of infection, bleeding and intra-abdominal injury was reviewed, and written consent was obtained Description of the procedure: The patient presented to the outpatient holding area on the day for procedure history and physical were verified and the consent was present and on the chart. She was taken back to the operating room and placed in supine position on the operating table. SCD boots were placed and functional prior to the service procedure. The patient received preoperative antibiotics as per SCIP protocol. A Garcia catheter was placed with return of clear yellow urine. The patient had successful induction of general anesthesia and was intubated without difficulty. The patient's left arm was tucked and the pressure points were padded. The patient was prepped and draped in standard surgical fashion and a timeout was performed. The abdomen was draped with Ioban to begin. A 5 mm incision was then made in the left upper quadrant just under the subcostal margin. A 5 mm port was then inserted into the abdomen with the Visiport technique. The abdomen was insufflated to 15 mmHg. There was no evidence of any injury in the area where we had entered the abdomen. We then proceeded to survey the area of hernia. A 5 mm port was inserted in the left lower quadrant. There were no omental adhesions visible up into the periumbilical hernia. These were densely adherent. We could also visualize the mesh along the left lateral aspect of the hernia. The LigaSure device and blunt dissection were then used to carefully take down the incarcerated omentum. An additional left lateral 9 mm port was inserted. This was then upsized to a 15 mm port during the course of t he dissection to facilitate explantation of the meshes. We did not encounter any bowel within the hernia. The mesh along the left side of the hernia was then cleared away of adherent fat and omentum. It was removed from the abdominal wall. There were Ethibond sutures visible to the fascia and the mesh. These were cut with the LigaSure device. We also noted an additional small piece of mesh adherent to the fascial defect inferiorly. This was also cleared away of scar tissue and freed from the abdominal wall. Both of these pieces of mesh were then removed from the abdomen. We then proceeded to completely remove the adhesions of the omentum into the hernia sac. Attempt was made to thoroughly clear the hernia of contents. Once this was done we then proceeded to size the hernia. It measured approximately 12 cm x 10 cm An additional 5 mm port was placed in the right abdomen. We proceeded to select the 15.3 x 20 cm oval mesh. Breckenridge-Suleiman suture were affixed in all 4 quadrants of the mesh. The mesh was then soaked in saline, rolled and placed through the 15 mm port into the abdomen. The mesh was then unfurled within the abdomen and the fixation site was marked with the spinal needle. A small stab incision was made in the area where we had selected. An suture passer was then passed into the abdomen and the tails of the Breckenridge-Suleiman suture were brought to the abdominal wall and secured. We then proceeded to do the same with the four remaining sutures in all four quadrants of the mesh. A SecureStrap Ethicon tacker was then used to circumferentially tack the to the abdominal wall. The 15 mm port was then removed and the fascial incision closed with a 0 Vicryl suture The abdomen was then desufflated and the ports were removed. The 15 mm port site was then further evaluated. A second layer of 0 Vicryl suture was then placed in this area for better closure. The stay sutures were tied down to the abdominal wall and the subcutaneous tissue was released as necessary for good closure. The incision sites were then closed with 4-0 Monocryl suture. Dermabond surgical glue were used to cover the port sites and stab incisions. The patient tolerated the procedure well and was transported to the PACU in stable condition. All sponge and needle counts correct. The Garcia catheter was removed at the conclusion of the case Complications: None apparent. Disposition: Stable to PACU Kayla Hernandez MD General Surgery
--- NOTE | 2021-01-17 22:04 | PCM.POSTAN ---
POST ANESTHESIA ASSESSMENT - MENTAL STATUS Mental Status: Somnolent - VITAL SIGNS Vital Signs: Last Vital Signs Temp 99.9 F 01/17/21 21:48 Pulse 73 01/17/21 21:48 Resp 19 01/17/21 21:48 BP 126/47 L 01/17/21 21:48 Pulse Ox 92 L 01/17/21 21:48 - RESPIRATORY Respiratory Status: Respiratory Rate WNL, Airway Patent, O2 Saturation Stable, Supplemental Oxygen - CARDIOVASCULAR CV Status: Pulse Rate WNL, Blood Pressure Stable - GASTROINTESTINAL GI Status: No Symptoms - PAIN Pain Score: 0 - POST OP HYDRATION Hydration Status: Adequate & Stable
[2021-01-17] MEDS ORDERED: Docusate Sodium 100 MG Cap PO SCH (22:15)
--- NOTE | 2021-01-17 22:47 | PCM48HPAN ---
Post Anesthesia Note - EVALUATION WITHIN 48HRS OF ANESTHETIC Vital Signs in Normal Range: Yes Patient Participated in Evaluation: Yes Respiratory Function Stable: Yes (going to [facility] floor with oxygen overnight) Airway Patent: Yes Cardiovascular Function Stable: Yes Hydration Status Stable: Yes Pain Control Satisfactory: Yes Nausea and Vomiting Control Satisfactory: Yes Mental Status Recovered: Yes Vital Signs: Last Vital Signs Temp 98.9 F 01/17/21 22:05 Pulse 71 01/17/21 22:20 Resp 15 01/17/21 22:20 BP 95/38 L 01/17/21 22:20 Pulse Ox 97 01/17/21 22:20 - COMMENTS/OBSERVATIONS Free Text/Narrative:: Patient is going to 20 [facility] floor for overnight observation with supplementary oxygen and continuous pulse oximetry overnight.
[2021-01-17] MEDS ORDERED: Ondansetron 4 MG/2 ML SDV IVPUSH PRN (23:34)
[2021-01-18] MEDS: Ibuprofen 600 MG Tab PO PRN ×2 (01:31→08:31)
[2021-01-18] MEDS: Acetaminophen/oxyCODONE 325-5 MG Tab PO PRN ×2 (03:46→07:50)
[2021-01-18 05:02] VITALS: PULSE 72
[2021-01-18] MEDS ORDERED: DULoxetine 30 MG Cap PO SCH (09:00)
[2021-01-18] MEDS ORDERED: Cetirizine 10 MG Tab PO SCH (09:00)
[2021-01-18 09:55] VITALS: BP 143/88
== END 2021-01-18 09:37 | disposition home or self-care (01) ==
LOC: JD.ED 13:47 → JD.SDS 17:37 → JD.MS 17:37 → JD.SDS 01-18 09:37
PROVIDERS: ATTEND Surgery
DX: K43.0 Incisional hernia with obstruction, without gangrene (principal); K66.0 Peritoneal adhesions (postprocedural) (postinfection); J45.909 Unspecified asthma, uncomplicated; F17.210 Nicotine dependence, cigarettes, uncomplicated; E66.9 Obesity, unspecified; Z68.42 Body mass index [BMI] 45.0-49.9, adult; Z01.812 Encounter for preprocedural laboratory examination; Z20.822 Contact with and (suspected) exposure to COVID-19
CPT/HCPCS: 0240U; 36415; 49655; 74177; 80053; 81001; 81025; 83690; 85025; 86140; 87086; 96374; 96375; 99285; A9270; J0330; J0690; J1100; J1170; J1885; J2250; J2370; J2405; J2704; J2710; J3010; J3490; J7030; J7120; 00790; C1781

== ENCOUNTER 2021-02-02 00:25 | Emergency (ER) | payer MEDICAID ==
[2021-02-02 00:44] VITALS: BP 147/58; PULSE 78
[2021-02-02] MEDS ORDERED: Ondansetron 4 MG/2 ML SDV IVPUSH ONE (01:09)
--- NOTE | 2021-02-02 01:13 | EDM.PDOC ---
ED HPI GENERAL MEDICAL PROBLEM - General Chief Complaint: Abdominal Pain Stated Complaint: BURNING & RIPPING FEELING IN ABDOMINAL AREA Time Seen by Provider: 02/02/21 00:46 Source of Information: Reports: Patient History Limitations: Reports: No Limitations - History of Present Illness INITIAL COMMENTS - FREE TEXT/NARRATIVE: Ms. Ellsworth is a very pleasant 40-year-old woman who now presents the ED with upper abdominal pain. She states that she underwent a laparoscopic ventral herniorrhaphy due to an incarcerated ventral hernia on 01/17/2021. Began having a burning/stabbing pain across her upper abdomen on 01/29/2021. The pain has been coming and going, typically lasting 1 minute, and occurring virtually every time she moves, but may occur even if she does not move. She states that she followed up with her surgeon's [employer]CH[employer] this past , 01/31/2021, and that everything looked good. She states that her symptoms have gotten worse, however. She reports having chronic nausea without emesis ever since her surgery. No recent fever or chills, constipation, diarrhea, or urinary symptoms. She denies prior similar symptoms. The patient states that she took some Tylenol around 17:00 last night, and and ibuprofen around midnight, which did not help with her symptoms. Here in the ED tonight, the patient's initial BP is found to be mildly elevated at 147/58, otherwise, she is hemodynamically stable, afebrile, saturating 96% on room air. She appears to be relatively comfortable, in no acute distress. Prior to Thursday, the patient denies having a recent fever, chills, sore throat, ear pain, nasal or sinus congestion, cough, dyspnea, chest pain, palpitations, vomiting, constipation, diarrhea, urinary symptoms, recent weight gain or weight loss, recent bloody bowel movements or black bowel movements, recent joint aches, headaches, or rashes. The patient's PCP is Kalyani Ugarte NP. Her Surgeon is Dr. Kayla Hernandez. She has received 2 COVID vaccinations. Abdomen Pain Score (Numeric/FACES): 4 - Related Data Allergies Allergy/AdvReac Type Severity Reaction Status Date / Time ragweed pollen Allergy Severe Swelling Verified 02/02/21 00:45 Home Meds: Home Meds Cetirizine [ZyrTEC] 1 tab PO DAILY 05/27/16 [History] Acetaminophen [Tylenol] 650 mg PO Q4H PRN 08/06/17 [History] Albuterol Sulfate [Proair Hfa] 2 puff INH Q4H PRN 11/27/17 [History] DULoxetine [Cymbalta] 30 mg PO DAILY 01/17/21 [History] Ibuprofen 600 mg PO Q6H PRN 14 Days #60 tablet 01/17/21 [Rx] Past Medical History HEENT History: Reports: Allergic Rhinitis, Impaired Vision Respiratory History: Reports: Asthma Psychiatric History: Reports: Anxiety, Depression, Suicide Attempt (by overdose, 2002), Other (See Below) (Fibromyalgia) Endocrine/Metabolic History: Reports: Obesity/BMI 30+ Hematologic History: Reports: Idiopathic Thrombocytopenia (2003) - Past Surgical History HEENT Surgical History: Reports: Naso-Sinus Surgery GI Surgical History: Reports: Colon, Hernia, Abdominal (ventral, as a child, with numerous herniorrhaphies since) Female Surgical History: Reports: Tubal Ligation Musculoskeletal Surgical History: Reports: Arthroscopic Knee (right) Social & Family History - Tobacco Use Tobacco Use Status *Q: Current Every Day Tobacco User Years of Tobacco use: 20 Packs/Tins Daily: 1 Tobacco Use Comment: started smoking 2000 - Caffeine Use Caffeine Use: Reports: Soda - Alcohol Use Alcohol Use History: No - Recreational Drug Use Recreational Drug Use: No - Living Situation & Occupation Living situation: Reports: , with Family (3 kids) 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 ED EXAM, GI/ABD - Physical Exam Exam: See Below Exam Limited By: No Limitations General Appearance: Alert, WD/WN, No Apparent Distress Eyes: Bilateral: Normal Appearance, EOMI Ears: Normal External Exam, Hearing Grossly Normal Nose: Normal Inspection Throat/Mouth: Normal Inspection, Normal Lips, Normal Voice, No Airway Compromise Head: Atraumatic, Normocephalic Neck: Normal Inspection, Full Range of Motion Respiratory/Chest: No Respiratory Distress, Lungs Clear, Normal Breath Sounds, No Accessory Muscle Use Cardiovascular: Normal Peripheral Pulses, Regular Rate, Rhythm, No Gallop, No JVD, No Murmur, No Rub GI/Abdominal Exam: Normal Bowel Sounds, Soft, No Organomegaly, No Distention, No Abnormal Bruit, Tender (to the epigastrium only, nontender elsewhere), Other (Palpable mass about the size of a tennis ball in the midline, inferior to the epigastrium. No overlying erythema or calor.) Back Exam: Normal Inspection, Full Range of Motion, NT Extremities: Normal Inspection, Normal Range of Motion, Normal Capillary Refill Neurological: Alert, Oriented, Normal Cognition, No Motor/Sensory Deficits Psychiatric: Normal Affect Skin Exam: Warm, Dry, Intact, Normal Color, No Rash Course - Vital Signs Last Recorded V/S: Last Vital Signs Temp 36.4 C 02/02/21 00:41 Pulse 78 02/02/21 00:41 Resp 16 02/02/21 00:41 BP 147/58 H 02/02/21 00:41 Pulse Ox 96 02/02/21 00:41 - Orders/Labs/Meds Orders: Active Orders 24 hr Category Date Time Status Abdomen Pelvis w Cont [CT] Stat Exams 02/02/21 01:09 Taken Sodium Chloride 0.9% [Normal Saline] 1,000 ml Med 02/02/21 01:15 Active IV ASDIRECTED Medication Orders Sodium Chloride (Normal Saline) 1,000 mls @ 150 mls/hr IV ASDIRECTED WIL Last Admin: 02/02/21 01:25 Dose: 150 mls/hr Documented by: BROCK Labs: Laboratory Tests 02/02/21 02/02/21 02/02/21 Range/Units 01:25 01:25 01:25 WBC 12.91 H (3.98-10.04) K/mm3 RBC 4.60 (3.98-5.22) M/mm3 Hgb 11.7 D (11.2-15.7) gm/dl Hct 37.2 (34.1-44.9) % MCV 80.9 (79.4-94.8) fl MCH 25.4 L (25.6-32.2) pg MCHC 31.5 L (32.2-35.5) g/dl RDW Std Deviation 45.5 (36.4-46.3) fL Plt Count 465 H D (182-369) K/mm3 MPV 10.6 (9.4-12.3) fl Neutrophils % (Manual) 60 (40-60) % Band Neutrophils % 0 (0-10) % Lymphocytes % (Manual) 29 (20-40) % Atypical Lymphs % 0 % Monocytes % (Manual) 5 (2-10) % Eosinophils % (Manual) 6 H (0.7-5.8) % Basophils % (Manual) 0 L (0.1-1.2) Platelet Estimate Increased Hypochromasia 1+ slight Anisocytosis 1+ slight RBC Morph Comment Abnormal Sodium 139 (136-145) mEq/L Potassium 4.4 (3.5-5.1) mEq/L Chloride 102 (98-107) mEq/L Carbon Dioxide 27 (21-32) mEq/L Anion Gap 14.4 (5-15) BUN 8 (7-18) mg/dL Creatinine 0.7 (0.55-1.02) mg/dL Est Cr Clr Drug Dosing 102.01 mL/min Estimated GFR (MDRD) > 60 (>60) mL/min BUN/Creatinine Ratio 11.4 L (14-18) Glucose 109 H (70-99) mg/dL Calcium 9.2 (8.5-10.1) mg/dL Total Bilirubin 0.3 (0.2-1.0) mg/dL AST 25 (15-37) U/L ALT 23 (14-59) U/L Alkaline Phosphatase 131 H (46-116) U/L Total Protein 8.0 (6.4-8.2) g/dl Albumin 3.2 L (3.4-5.0) g/dl Globulin 4.8 gm/dL Albumin/Globulin Ratio 0.7 L (1-2) Lipase 85 (73-393) U/L HCG, Qual Negative (NEGATIVE) Meds: Medications Generic Name Dose Route Start Last Admin Trade Name Freq PRN Reason Stop Dose Admin Sodium Chloride 1,000 mls @ 150 mls/hr 02/02/21 01:15 02/02/21 01:25 Normal Saline IV 150 mls/hr ASDIRECTED WIL Administration Discontinued Medications Generic Name Dose Route Start Last Admin Trade Name Freq PRN Reason Stop Dose Admin Diatrizoate Meglum/Diatrizoate Sod 120 ml 02/02/21 02:44 02/02/21 02:45 Diatrizoate Meglumine/Diatrizoate Sodium 37% 120 Ml Bottle PO 02/02/21 02:45 120 ml ONETIME ONE Administration Iopamidol 100 ml 02/02/21 02:44 02/02/21 02:45 Iopamidol 612 Mg/Ml 100 Ml Bottle IVPUSH 02/02/21 02:45 100 ml ONETIME ONE Administration Ondansetron HCl 4 mg 02/02/21 01:09 02/02/21 01:25 Ondansetron 4 Mg/2 Ml Sdv IVPUSH 02/02/21 01:10 4 mg ONETIME ONE Administration Sodium Chloride 10 ml 02/02/21 02:44 02/02/21 02:45 Sodium Chloride 0.9% 10 Ml Sdv FLUSH 02/02/21 02:45 10 ml ONETIME ONE Administration - Re-Assessments/Exams Free Text/Narrative Re-Assessment/Exam: 02/02/21 01:11 As above, the patient underwent a laparoscopic ventral herniorrhaphy due to an incarcerated hernia on 01/17/2021. She reports developing a stabbing/burning pain across her upper abdomen that has been coming and going since Thursday, but getting worse. The pain persist for about 1 minute, and recurs whenever she moves, although it may recur even if she does not move. She has chronic nausea that has been worse since her surgery, but no recent emesis. No recent fever, constipation, diarrhea, or urinary symptoms. On examination, she has some tenderness to her upper abdomen. I have ordered a work-up that includes several blood tests and a CT of the abdomen and pelvis with oral and IV contrast. In the meantime, the patient will be treated with IV fluid and IV Zofran. She declined an offer for pain medication. 02/02/21 02:07 The patient's CBC is remarkable for modest leukocytosis of 12.91, but with 0% bandemia, and thrombocytosis of 465,000, with the remainder of her CBC being unremarkable. Her CMP is remarkable for mild hyperglycemia of 109, and an alkaline phosphatase mildly elevated at 131, with remainder of her CMP being unremarkable. Her lipase level is within normal limits at 85. Her serum qualitative hCG is negative. 02/02/21 04:57 CT of the abdomen and pelvis is read by Flako as: 1. Localized fluid collection in the anterior abdominal wall presumably located at site of reported recent hernia repair. Potential etiologies include seroma, resolving hematoma, and abscess. 2. Few tiny foci of soft tissue gas in the anterior abdominal wall in proximity of the fluid collection. It would be unusual for postoperative gas to persist this long after surgery and other etiologies should be considered (recent injections/instrumentation, gas-forming infection, etc.). 02/02/21 05:[address] Knowles at 04:59. Given the very low density of the fluid , she suspects that the fluid collection is a developing seroma, and highly doubts an infection. I agree. Drainage may give her some relief, although it would likely recur until the area scars over. She would like the patient to contact her office first thing Thursday to arrange to be seen on Thursday, at which time she can drain the collection. 02/02/21 05:08 Test results and my conversation with Dr. Knowles discussed with the patient. I do not think she is thrilled about the idea of having to have the fluid collection drained, but she acknowledged that it is likely the best course of action. She agreed to contact Dr. Knowles's office first thing Thursday. Departure - Departure Time of Disposition: 05:09 Disposition: Home, Self-Care 01 Condition: Good Clinical Impression: Abdominal wall seroma - Discharge Information *PRESCRIPTION DRUG MONITORING PROGRAM REVIEWED*: Not Applicable *COPY OF PRESCRIPTION DRUG MONITORING REPORT IN PATIENT MATT: Not Applicable Referrals: Kalyani Ugarte NP [Primary Care Provider] - Kayla Hernandez MD [Physician] - Forms: ED Department Discharge Additional Instructions: You were seen in the emergency room after developing a burning/stabbing pain to your upper abdomen that has been coming and going since 01/29/2021. Work-up in the ER included several blood tests and a CT of your abdomen and pelvis with oral and IV contrast. Your blood work was grossly unremarkable, and not consistent with an infection. The CT scan of your abdomen and pelvis found a fluid collection in your abdominal wall that is most likely a developing seroma. Your case was discussed with your Surgeon Dr. Kayla Hernandez. She would like you to contact her office first thing 02/04/2021, to arrange to see her on Thursday. At that time, she will most likely drain the fluid collection. You may continue to take your usual prescribed medications. If any other problems, please do not hesitate to return to the ER. Sepsis Event Note (ED) - Focused Exam Vital Signs: Vital Signs Temp Pulse Resp BP Pulse Ox 02/02/21 00:41 36.4 C 78 16 147/58 H 96 - My Orders Last 24 Hours: My Active Orders 02/02/21 01:09 Abdomen Pelvis w Cont [CT] Stat 02/02/21 01:15 Sodium Chloride 0.9% [Normal Saline] 1,000 ml IV ASDIRECTED - Assessment/Plan Last 24 Hours: My Active Orders 02/02/21 01:09 Abdomen Pelvis w Cont [CT] Stat 02/02/21 01:15 Sodium Chloride 0.9% [Normal Saline] 1,000 ml IV ASDIRECTED
[2021-02-02] MEDS ORDERED: Sodium Chloride 0.9% 1,000 ML IV SCH (01:15)
[2021-02-02] MEDS ORDERED: Sodium Chloride 0.9% 10 ML SDV FLUSH ONE (02:44)
[2021-02-02] MEDS ORDERED: Diatrizoate Meglumine/Diatrizoate Sodium 37% 120 ML Bottle PO ONE (02:44)
[2021-02-02] MEDS ORDERED: Iopamidol 612 MG/ML 100 ML Bottle IVPUSH ONE (02:44)
--- NOTE | 2021-02-03 08:42 | CT ---
CT abdomen and pelvis Technique: Multiple axial sections were obtained from above the dome of the diaphragm inferiorly through the pubic symphysis. Intravenous and oral contrast were utilized. Delayed images were obtained to the bladder. Reconstructed coronal and sagittal images were obtained. Comparison: Prior CT abdomen and pelvis study of 01/17/21. Findings: Visualized lung bases show nothing acute. Liver shows no focal parenchymal abnormality. Spleen size is normal. Adrenal glands show no nodule. Pancreas is within normal limits. Kidneys show symmetric contrast enhancement with no hydronephrosis or mass being seen. Abdominal aorta shows no aneurysm. No retroperitoneal adenopathy or mesenteric abnormalities are seen. No pelvic mass or adenopathy is noted. There is inflammatory change as well as fluid being seen anteriorly within the abdominal wall within an area of previous hernia surgery. Finding measures about 10.0 cm x 3.8 cm x 8.8 cm. Small amount of air is seen within the superior aspect of this finding. This abnormality is located above the umbilicus. Very minimal density is seen within the left abdominal wall. No additional abdominal wall abnormality is appreciated. Delayed images shows contrast within the distal ureters and within the bladder. Bone window settings were reviewed which appear within normal limits for the patient's age. Impression: 1. Focal fluid collection within the anterior abdominal wall with surrounding inflammatory type change. Differential includes postoperative hematoma, postoperative seroma as well as possible abscess if patient has infectious symptoms. 2. Minimal density within the left anterior abdominal wall most likely incidental. 3. Small amount of air is noted within the larger abnormality, this could represent possible postoperative air or less likely representing airforming infection. 4. No additional abnormality is seen. Diagnostic code #3 I agree with preliminary report from [facility], finalized on 02/02/21, 5:44 AM CDT, code 1
== END 2021-02-02 05:23 | disposition home or self-care (01) ==
LOC: JD.ED 00:25
DX: K91.872 Postprocedural seroma of a digestive system organ or structure following a digestive system procedure (principal); J45.909 Unspecified asthma, uncomplicated; E66.9 Obesity, unspecified; Z68.38 Body mass index [BMI] 38.0-38.9, adult; Z72.0 Tobacco use; Z91.048 Other nonmedicinal substance allergy status; Z79.899 Other long term (current) drug therapy
CPT/HCPCS: 36415; 74177; 80053; 83690; 84703; 85007; 85027; 96374; 99284; J2405; J7030; Q9963; Q9967

== ENCOUNTER 2021-09-22 17:10 | Emergency (ER) | payer MEDICAID ==
[2021-09-22 17:23] VITALS: BP 147/81; PULSE 93
[2021-09-22] MEDS: Sodium Chloride 0.9% 10 ML Syringe FLUSH PRN ×2 (18:24→18:42)
[2021-09-22] MEDS ORDERED: Sodium Chloride 0.9% 10 ML SDV FLUSH ONE (18:40)
[2021-09-22] MEDS ORDERED: Iopamidol 612 MG/ML 100 ML Bottle IVPUSH ONE (18:40)
== END 2021-09-22 20:27 | disposition home or self-care (01) ==
LOC: JD.ED 17:10
DX: K52.9 Noninfective gastroenteritis and colitis, unspecified (principal); E66.9 Obesity, unspecified; Z68.42 Body mass index [BMI] 45.0-49.9, adult; Z91.048 Other nonmedicinal substance allergy status; Z72.0 Tobacco use
CPT/HCPCS: 36415; 74177; 80053; 81001; 85025; 86140; 87086; 99284; J3490; Q9967

== ENCOUNTER 2021-11-20 13:02 | Emergency (ER) | payer MEDICAID ==
[2021-11-20 13:46] VITALS: BP 120/63; PULSE 77
[2021-11-20 15:14] LABS: CORONAVIRUS COVID-19 NAA POSITIVE (NEGATIVE)
== END 2021-11-20 15:47 | disposition home or self-care (01) ==
LOC: JD.ED 13:02
DX: U07.1 COVID-19 (principal); F17.210 Nicotine dependence, cigarettes, uncomplicated; E66.9 Obesity, unspecified; Z68.41 Body mass index [BMI] 40.0-44.9, adult; Z91.048 Other nonmedicinal substance allergy status
CPT/HCPCS: 0240U; 36415; 71045; 80053; 81003; 83735; 84443; 84484; 85025; 86140; 93005; 99284

== ENCOUNTER 2022-05-27 08:18 | Day surgery (SDC) | payer MEDICAID ==
[~2022-05-27 08:18] MED LIST changes: +Albuterol 0.083% 2.5 MG/3 ML Neb Soln NEB PRN; +Sodium Chloride 0.9% 10 ML Syringe FLUSH SCH; +ceFAZolin 2 GM Vial ONE
[2022-05-27] MEDS ORDERED: ePHEDrine 50 MG/ML SDV ONE (08:24)
[2022-05-27] MEDS ORDERED: Lactated Ringers 1,000 ML ONE (09:08)
[2022-05-27] MEDS ORDERED: fentaNYL 100 MCG/2 ML SDV ONE (09:08)
[2022-05-27] MEDS ORDERED: Dexamethasone 4 MG/ML 5 ML MDV ONE (09:08)
[2022-05-27] MEDS ORDERED: ceFAZolin 2 GM Vial ONE (09:08)
[2022-05-27] MEDS ORDERED: Rocuronium 50 MG/5 ML Vial ONE (09:08)
[2022-05-27] MEDS ORDERED: Ondansetron 4 MG/2 ML SDV ONE (09:08)
[2022-05-27] MEDS ORDERED: Propofol 200 MG/20 ML SDV ONE (09:08)
[2022-05-27] MEDS ORDERED: Ketorolac 30 MG/ML SDV ONE (09:08)
[2022-05-27] MEDS ORDERED: Midazolam 1 MG/ML 2 ML SDV ONE (09:09)
[2022-05-27] MEDS ORDERED: Scopolamine 1.5 MG Transdermal Patch TRDERM PRN ×2 (09:11→16:16)
[2022-05-27] MEDS ORDERED: Succinylcholine 200 MG/10 ML MDV ONE (09:37)
[2022-05-27] MEDS ORDERED: Neostigmine Methylsulfate 10 MG/10 ML MDV ONE (10:21)
[2022-05-27] MEDS ORDERED: Midazolam 1 MG/ML 2 ML SDV IVPUSH PRN (10:25)
[2022-05-27] MEDS ORDERED: ePHEDrine 50 MG/ML SDV IVPUSH PRN (10:25)
[2022-05-27] MEDS ORDERED: HYDROmorphone 0.5 MG/0.5 ML Syringe IVPUSH PRN (10:25)
[2022-05-27] MEDS ORDERED: Phenylephrine 1% 10 MG/ML SDV IVPUSH PRN (10:25)
[2022-05-27] MEDS ORDERED: Albuterol 0.083% 2.5 MG/3 ML Neb Soln NEB PRN (10:25)
[2022-05-27] MEDS ORDERED: Ondansetron 4 MG/2 ML SDV IVPUSH PRN ×2 (10:25→10:39)
[2022-05-27] MEDS ORDERED: diphenhydrAMINE 50 MG/ML SDV IVPUSH PRN (10:25)
[2022-05-27] MEDS ORDERED: fentaNYL 100 MCG/2 ML SDV IVPUSH PRN (10:25)
[2022-05-27] MEDS ORDERED: HYDROmorphone 0.5 MG/0.5 ML Syringe ONE (10:33)
[2022-05-27] MEDS ORDERED: Ketorolac 30 MG/ML SDV IVPUSH SCH (10:45)
[2022-05-27] MEDS ORDERED: Acetaminophen 325 MG Tab PO STA (10:56)
[2022-05-27 12:14] VITALS: BP 112/74; PULSE 64
[2022-05-27] MEDS ORDERED: Ibuprofen 600 MG Tab PO PRN (13:00)
== END 2022-05-27 12:55 | disposition home or self-care (01) ==
LOC: JD.SDS 08:18
PROVIDERS: ATTEND Obstetrics & Gynecology
DX: N94.6 Dysmenorrhea, unspecified (principal); N92.0 Excessive and frequent menstruation with regular cycle; F41.9 Anxiety disorder, unspecified; J45.909 Unspecified asthma, uncomplicated; E11.9 Type 2 diabetes mellitus without complications; E78.5 Hyperlipidemia, unspecified; G47.00 Insomnia, unspecified; E66.9 Obesity, unspecified; K58.9 Irritable bowel syndrome, unspecified; E55.9 Vitamin D deficiency, unspecified; F17.210 Nicotine dependence, cigarettes, uncomplicated; Z79.899 Other long term (current) drug therapy; Z79.84 Long term (current) use of oral hypoglycemic drugs; Z98.890 Other specified postprocedural states; Z68.41 Body mass index [BMI] 40.0-44.9, adult
CPT/HCPCS: 36415; 58563; 81003; 82947; 85025; A9270; J0330; J0690; J1100; J1170; J1885; J2250; J2405; J2704; J2710; J3010; J7120

== ENCOUNTER 2023-04-10 07:21 | Emergency (ER) | payer MEDICAID ==
[2023-04-10] MEDS ORDERED: Sodium Chloride 0.9% 10 ML Syringe FLUSH PRN (08:01)
[2023-04-10] MEDS ORDERED: Sodium Chloride 0.9% 1,000 ML IV STA (08:01)
[2023-04-10] MEDS ORDERED: Ondansetron 4 MG/2 ML SDV IVPUSH ONE (08:01)
[2023-04-10] MEDS ORDERED: HYDROmorphone 0.5 MG/0.5 ML Syringe IVPUSH ONE (08:02)
[2023-04-10 08:28] LABS: BASOPHILS ABSOLUTE AUTO 0.1 K/mm3 (0.0-0.2); BASOPHILS PERCENT AUTO 0.6 % (0.0-1.0); EOSINOPHILS ABSOLUTE AUTO 0.2 K/mm3 (0.0-0.4); EOSINOPHILS PERCENT AUTO 1.6 % (0.0-6.0); HEMATOCRIT 42.7 % (37.0-47.0); HEMOGLOBIN 13.9 gm/dl (12.0-16.0); IMMATURE GRAN ABSOLUTE AUTO 0.04 K/mm3 (0.00-0.05); IMMATURE GRAN PERCENT AUTO 0.4 % (0.0-0.4); LYMPHOCYTES ABSOLUTE AUTO 2.6 K/mm3 (1.0-4.8); LYMPHOCYTES PERCENT AUTO 25.3 % (24.0-44.0); MEAN CORPUSCULAR HEMOGLOBIN 26.3 pg (28.0-32.0); MEAN CORPUSCULAR HGB CONC 32.6 g/dl (32.0-36.0); MEAN CORPUSCULAR VOLUME 80.7 fl (83.0-99.0); MEAN PLATELET VOLUME 9.9 fl (9.4-12.3); MONOCYTES ABSOLUTE AUTO 0.6 K/mm3 (0.0-0.8); MONOCYTES PERCENT AUTO 5.9 % (0.0-8.0); NEUTROPHILS ABSOLUTE AUTO 6.7 K/mm3 (1.8-7.7); NEUTROPHILS PERCENT AUTO 66.2 % (41.0-71.0); PLATELET COUNT,PLT 374 K/mm3 (150-400); RED BLOOD CELL COUNT 5.29 M/mm3 (4.10-5.30); WHITE BLOOD CELL COUNT,WBC 10.17 K/mm3 (3.9-11.3)
[2023-04-10] MEDS ORDERED: Iopamidol 612 MG/ML 100 ML Bottle IVPUSH ONE (08:36)
[2023-04-10] MEDS ORDERED: Sodium Chloride 0.9% 10 ML Syringe FLUSH ONE (08:36)
[2023-04-10 08:53] LABS: BUN/CREATININE RATIO 6.3 (14-18); CREATININE 0.8 mg/dL (0.55-1.02); EST CRCL DRUG DOSING (CG) 86.63 mL/min
[2023-04-10 08:54] LABS: A/G RATIO 0.6 (1-2); ALBUMIN 3.2 g/dl (3.4-5.0); BILIRUBIN TOTAL 0.5 mg/dL (0.2-1.0); CALCIUM 9.5 mg/dL (8.5-10.1); PROTEIN TOTAL,TP 8.7 g/dl (6.4-8.2)
[2023-04-10 09:11] LABS: APPEARANCE,URINE SLT CLOUDY (Clear); BILIRUBIN,URINE NEGATIVE (Negative); COLOR,URINE YELLOW (Yellow); GLUCOSE,URINE NEGATIVE (Negative); KETONES,URINE NEGATIVE (Negative); LEUKOCYTE ESTERASE,URINE NEGATIVE (Negative); NITRITE,URINE NEGATIVE (Negative); OCCULT BLOOD,URINE NEGATIVE (Negative); PROTEIN,URINE NEGATIVE (Negative)
[2023-04-10 09:29] LABS: RBC,URINE 0-5 /hpf (0-5); WBC,URINE 0-5 /hpf (0-5)
[2023-04-10 09:30] LABS: BACTERIA,URINE FEW /hpf (FEW); MUCUS,URINE FEW /hpf (FEW)
[2023-04-10] MEDS ORDERED: Ketorolac 30 MG/ML SDV IVPUSH ONE (10:09)
[2023-04-10 10:39] VITALS: BP 120/92; PULSE 52
== END 2023-04-10 10:30 | disposition home or self-care (01) ==
LOC: JD.ED 07:21
DX: M62.08 Separation of muscle (nontraumatic), other site (principal); R11.0 Nausea; J45.909 Unspecified asthma, uncomplicated; F17.210 Nicotine dependence, cigarettes, uncomplicated; E11.9 Type 2 diabetes mellitus without complications; E66.9 Obesity, unspecified; Z68.41 Body mass index [BMI] 40.0-44.9, adult; Z79.84 Long term (current) use of oral hypoglycemic drugs
CPT/HCPCS: 36415; 74177; 80053; 81001; 83690; 84703; 85025; 96361; 96374; 96375; 99284; J1170; J1885; J2405; J3490; J7030; Q9967

== ENCOUNTER 2025-02-18 07:09 | Emergency (ER) | payer MEDICAID ==
[2025-02-18 09:03] LABS: BASOPHILS ABSOLUTE AUTO 0.1 K/mm3 (0.0-0.2); BASOPHILS PERCENT AUTO 0.5 % (0.0-1.0); EOSINOPHILS ABSOLUTE AUTO 0.4 K/mm3 (0.0-0.4); EOSINOPHILS PERCENT AUTO 3.0 % (0.0-6.0); IMMATURE GRAN ABSOLUTE AUTO 0.04 K/mm3 (0.00-0.05); IMMATURE GRAN PERCENT AUTO 0.3 % (0.0-0.4); LYMPHOCYTES ABSOLUTE AUTO 3.1 K/mm3 (1.0-4.8); LYMPHOCYTES PERCENT AUTO 26.8 % (24.0-44.0); MEAN PLATELET VOLUME 9.8 fl (9.4-12.3); MONOCYTES ABSOLUTE AUTO 0.8 K/mm3 (0.0-0.8); MONOCYTES PERCENT AUTO 7.1 % (0.0-8.0); NEUTROPHILS ABSOLUTE AUTO 7.2 K/mm3 (1.8-7.7); NEUTROPHILS PERCENT AUTO 62.3 % (41.0-71.0); NRBC ABSOLUTE 0.00 (0.00-0.02); NRBC PERCENT 0.0 % (0.0-0.2); PLATELET COUNT,PLT 292 K/mm3 (150-400); RED BLOOD CELL COUNT 4.53 M/mm3 (4.10-5.30); WHITE BLOOD CELL COUNT,WBC 11.51 K/mm3 (3.9-11.3)
[2025-02-18 09:24] LABS: A/G RATIO 0.7 (1-2); ALANINE AMINOTRANSFERASE,ALT 21.0 U/L (14-59); ASPARTATE AMNIOTRANSFERASE,AST 11.0 U/L (15-37); BILIRUBIN TOTAL 0.3 mg/dL (0.2-1.0); BLOOD UREA NITROGEN,BUN 7.0 mg/dL (7-18); CARBON DIOXIDE,CO2 30.0 mEq/L (21-32); CHLORIDE,CL 104.0 mEq/L (98-107); CREATININE 0.6 mg/dL (0.55-1.02); EST CRCL DRUG DOSING (CG) 113.18 mL/min; ESTIMATED GFR 114.0 mL/min (>60); GLUCOSE RANDOM 107.0 mg/dL (70-99); POTASSIUM,K 3.9 mEq/L (3.5-5.1); PROTEIN TOTAL,TP 7.2 g/dl (6.4-8.2); SODIUM,NA 140.0 mEq/L (136-145)
[2025-02-18 10:25] VITALS: BP 129/79; PULSE 55
== END 2025-02-18 10:27 | disposition home or self-care (01) ==
LOC: JD.ED 07:09
DX: R20.2 Paresthesia of skin (principal); E11.9 Type 2 diabetes mellitus without complications; Z79.899 Other long term (current) drug therapy; Z86.16 Personal history of COVID-19
CPT/HCPCS: 36415; 80053; 83735; 84703; 85025; 93005; 99284